=== PATIENT | male | born 1980 | race Hispanic/Latino ===

== ENCOUNTER 2017-07-15 17:16 | Emergency (ER) | payer OTHER ==
[~2017-07-15] VITALS: Ht 162.6 cm; Wt 72.3 kg
[2017-07-15 18:38] LABS: HEMATOCRIT 46.1 % (38.0-50.0); HEMOGLOBIN 16.1 G/DL (12.5-16.6); MCH 27.2 PG (29.0-34.0); MCHC 34.9 G/DL (30.0-36.0); MCV 77.7 FL (86-99); PLATELET COUNT 178 K/uL (156-360); RBC DIS.WIDTH-CV 12.9 % (11.8-14.6); RBC DIS.WIDTH-SD 36.9 % (39-53); RED BLOOD COUNT 5.93 M/uL (4.00-5.50); WHITE BLOOD COUNT 5.5 K/uL (4.1-10.2)
[2017-07-15 18:50] LABS: ALBUMIN 4.1 g/dL (3.2-4.8); CHLORIDE 94 mEq/L (99-109); POTASSIUM 3.9 mEq/L (3.7-5.4); SODIUM 130 mEq/L (136-147)
[2017-07-15 18:53] LABS: GLUCOSE 134 mg/dL (70-99); TOTAL PROTEIN 7.6 g/dL (6.4-8.3)
[2017-07-15 18:55] LABS: TOTAL BILIRUBIN 0.4 mg/dL (0.0-1.0)
[2017-07-15 18:56] LABS: ALKALINE PHOSPHATASE 98 IU/L (3-129); CREATININE 0.9 mg/dL (0.6-1.3)
[2017-07-15 18:57] LABS: UREA NITROGEN (BUN) 12 mg/dL (9-23)
[2017-07-15 18:58] LABS: AST (GOT) 35 IU/L (2-34)
[2017-07-15 18:59] LABS: ALT (GPT) 28 IU/L (3-49)
[2017-07-15 19:02] LABS: GFR ESTIMATE (CALCULATED) > 59 mL/min/ (58.99-99999)
[2017-07-15 20:40] LABS: APPEARANCE CLEAR ((CLEAR)); BILIRUBIN NEGATIVE; BLOOD NEGATIVE; COLOR YELLOW ((YELLOW)); GLUCOSE (STRIP) 50; KETONES NEGATIVE; LEUKOCYTES NEGATIVE; NITRITE NEGATIVE; PROTEIN (STRIP) >=500; SPECIFIC GRAVITY 1.009 (1.000-1.030); UROBILINOGEN 0.2 MG/DL (0.2-1.0)
[2017-07-15 20:43] LABS: BACTERIA NONE SEEN /HPF; EPITHELIAL CELLS NONE SEEN /HPF; MUCUS NONE SEEN /LPF; RED BLOOD CELLS 0-5 /HPF (0-5); UCUL ADDED? NO; WHITE BLOOD CELLS 0-5 /HPF (0-5)
[2017-07-15] MEDS ORDERED: MOTRIN600 MG PO (21:12)
[2017-07-15] MEDS ORDERED: TAMIFLU75 MG PO (21:12)
[2017-07-15 21:27] VITALS: BP 116/91
== END 2017-07-15 21:37 | disposition home or self-care (01) ==
LOC: EME 17:16
PROVIDERS: Physician Assistant
DX: J10.1 Influenza due to other identified influenza virus with other respiratory manifestations (principal); R11.2 Nausea with vomiting, unspecified; R19.7 Diarrhea, unspecified; E87.1 Hypo-osmolality and hyponatremia
CPT/HCPCS: 71046; 80053; 81003; 85027; 87502; 99281; 99285; J1885